=== PATIENT | male | born 1980 | race Caucasian/White ===

== ENCOUNTER 2017-06-12 16:15 | Emergency (ER) | payer OTHER ==
--- NOTE | 2017-06-12 16:40 | ED PDOC ---
HPI: General Adult Time Seen by Provider: 06/12/17 16:24 Chief Complaint (Nursing): Palpitations Additional Complaint(s): 36yo M with no PMHx c/o palpitations. palpitations today, 1 hour ago, 15min in duration, occurred while sitting getting a haircut. prior incident of palpitations occurred 4 years ago 2/2 sympathomimetics. Denies chest pain, SOB, abd pain. Denies PHx/FHx cardiac disease or thyroid disease. Denies fever, chills, n/v, cough, congestion, sore throat. PCP [facility] Past Medical History Vital Signs: Last Vital Signs Temp 97.4 F L 06/12/17 16:20 Pulse 78 06/12/17 16:20 Resp 16 06/12/17 16:20 BP 145/82 06/12/17 16:20 Pulse Ox 100 06/12/17 16:45 - Family History Family History: States: Unknown Family Hx - Allergies Allergies/Adverse Reactions: Allergies Allergy/AdvReac Type Severity Reaction Status Date / Time No Known Allergies Allergy Verified 06/12/17 16:19 - ECG O2 Sat by Pulse Oximetry: 100 Disposition - Clinical Impression Clinical Impression: Palpitations - Disposition Disposition Time: 18:07 Condition: STABLE Forms: [employer] [facility] ([place]ian)
[2017-06-12 17:58] LABS: BASO # 0.1 K/uL (0.0-0.2); EOS # 0.1 K/uL (0.0-0.7); EOS % 0.9 % (0.0-4.0); HEMOGLOBIN 14.6 g/dL (12.0-18.0); LYMPH # 2.2 K/uL (1.0-4.3); LYMPH % 32.8 % (20.0-40.0); MEAN CELL VOLUME 84.1 fl (80.0-94.0); MEAN CORPUSCULAR HEMOGLOBIN 29.2 pg (27.0-31.0); MEAN CORPUSCULAR HGB CONC 34.7 g/dL (33.0-37.0); MEAN PLATELET VOLUME 8.6 fl (7.2-11.7); MONO # 0.5 K/uL (0.0-0.8); NEUT # 3.9 K/uL (1.8-7.0); NEUT % 57.3 % (50.0-75.0); NRBC % 0.4 % (0.0-0.0); RBC 5.01 Mil/uL (4.40-5.90); RED CELL DISTRIBUTION WIDTH 12.6 % (11.5-14.5); WHITE BLOOD COUNT 6.8 K/uL (4.8-10.8)
[2017-06-12 18:27] LABS: CALCIUM 9.3 mg/dL (8.4-10.2); GFR AFRICAN-AMERICAN > 60; GFR NON-AFRICAN AMERICAN > 60
[2017-06-12 18:53] VITALS: BP 123/80; PULSE 76; RESP 18; TEMP 97.9; O2SAT 98
[2017-06-12 19:00] LABS: BLOOD UREA NITROGEN 14 mg/dl (9-20)
--- NOTE | 2017-06-12 19:19 | ED PDOC ---
- Laboratory Results Result Diagrams: 06/12/17 17:38 06/12/17 17:38 - ECG O2 Sat by Pulse Oximetry: 98 - Progress Re-evaluation Time: 19:17 Condition: Improved (No chest pain, palpitations or sxs while in ED NSR on monitor) Disposition - Clinical Impression Clinical Impression: Palpitations - POA Present On Arrival: None - Disposition Referrals: [facility] [Outside] Disposition: Routine/Home Disposition Time: 19:17 Condition: FAIR Prescriptions: Non-Formulary 1 ea .ROUTE Q6 #1 ea Non-Formulary 1 ea .ROUTE Q6 #1 ea Instructions: Palpitations Forms: [facility] (Ind[place]ian)
--- NOTE | 2017-06-13 15:51 | CARD ---
APPROVED REPORT EKG Measurement Heart [id number] <Conclusion> Normal sinus rhythm with sinus arrhythmia RSR' or QR pattern in V1 suggests right ventricular conduction delay Borderline ECG
== END 2017-06-12 19:30 | disposition home or self-care (01) ==
LOC: H.ER 16:15
DX: R00.2 Palpitations (principal)